=== PATIENT | female | born 1990 ===

== ENCOUNTER 2023-01-02 15:43 | Inpatient (IN) | payer OTHER ==
[~2023-01-02] VITALS: Ht 160 cm; Wt 2.7 kg
[2023-01-16] MEDS ORDERED: LOVENOX30 MG/0.3 SUBCUTANEO (15:40)
[2023-01-17] MEDS ORDERED: ENOXAPARIN40 MG/0.4 (10:37)
== END 2023-01-19 13:59 | disposition home or self-care (01) | DRG 785 ==
LOC: EDBD → O/R 01-17 07:35 → OB/GYN 01-17 14:14
PROVIDERS: ADMIT Obstetrics & Gynecology; ATTEND Obstetrics & Gynecology
PROC: 0UB70ZZ Excision of Bilateral Fallopian Tubes, Open Approach (ICD-10-PCS; 2023-01-17)
PROC: 4A1HXCZ Monitoring of Products of Conception, Cardiac Rate, External Approach (ICD-10-PCS; 2023-01-17)
PROC: 10D00Z1 Extraction of Products of Conception, Low, Open Approach (ICD-10-PCS; principal; 2023-01-17 10:00)
DX: O34.211 Maternal care for low transverse scar from previous cesarean delivery (principal); Z3A.39 39 weeks gestation of pregnancy; Z37.0 Single live birth; Z20.822 Contact with and (suspected) exposure to COVID-19; Z30.2 Encounter for sterilization

== ENCOUNTER 2023-01-09 15:25 | Outpatient (CLI) | payer OTHER | END 2023-01-09 17:20 | disposition home or self-care (01) | LOC: NST 15:25 | PROVIDERS: ATTEND Obstetrics & Gynecology Gynecology | DX: Z34.83 Encounter for supervision of other normal pregnancy, third trimester (principal) ==